=== PATIENT | male | born 1965 | race Caucasian/White ===

== ENCOUNTER 2017-07-06 17:20 | Emergency (ER) | payer SELFPAY ==
[2017-07-06 17:27] VITALS: BP 127/82; PULSE 108; RESP 18; TEMP 36.8; O2SAT 98; BMI 19.6
--- NOTE | 2017-07-06 17:32 | XR_ITS ---
XR hand LT min 3V HISTORY: Post traumatic pain ITS.REASON: fall ORDERING PHYSICIAN: Sofia Schaeffer MD PATIENT AGE: 51 years COMPARISON: None FINDINGS: Boxer's fracture involving the distal aspect of the fifth metacarpal with moderate radial and palmar angulation of the distal fracture fragment without significant displacement. There is cortical thickening of the proximal aspect of the fourth metacarpal with some bowing anteriorly of the distal aspect and mild shortening of the fourth metacarpal consistent with an old fracture. IMPRESSION: Nondisplaced boxer's fracture distal fourth metacarpal
--- NOTE | 2017-07-06 17:42 | HMH.EDFALL ---
ED Disposition Clinical Impression: Closed boxer's fracture, Fall Disposition: Home, Self-Care Condition on Discharge: Good Additional Instructions: Rest elevation ice and using [id number] pain medicine. follow up with Dr Lopez - Critical Care Critical Care Time: No Attestation: On , the high probability of a clinically significant, sudden or life threatening deterioration of the following system(s) required my full and direct attention, intervention and personal management. The time I documented below is in addition to time spent performing reported procedures but includes the following listed in this critical care notation. Medical Decision Making - Medical Records Medical records reviewed: Yes: I reviewed the patient's medical records. Vital Signs: 07/06/17 17:27 Temperature 98.2 F Temperature Source Oral Pulse Rate [Right Brachial] 108 H Respiratory Rate 18 Blood Pressure [Right Arm] 127/82 Blood Pressure Mean [Right Arm] 97 Blood Pressure Source [Right Arm] Automatic Cuff Blood Pressure Position [Right Arm] Sitting 02 Sat by Pulse Oximetry 98 Oxygen Delivery Method Room Air Orders (Tests/Meds): ORDERS Category Date Time Status Hand XR left minimum 3 views [XR hand LT min 3V] Stat Exams 07/06/17 17:32 Ordered - Radiology Data #1 Image(s): Hand Image Reviewed: Yes I reviewed the patient's radiology image Nondisplaced fracture in a previously healed boxer's fracture. - Lester Inquiry Pt receiving controlled substance: No Lester was queried for this patient: No Medical Decision Making Narrative: I discussed with the patient about splinting and following of Dr. Martin he seemed to agree. Fall HPI - General Chief Complaint: Fall Stated Complaint: ao [id number] @1600 L hand injury Mode of Arrival: Ambulatory Limitations: No Limitations Description of Symptoms (Recalled from ER Triage Doc. by RN): fell and hurt left hand - History of Present Illness HPI Narrative: 51 years old white male with a previously healed boxer's fracture of the left fifth metacarpal. He claims that he missed a step and landed on his left hand. complaint: fall Onset (ago): hour(s) (1 hour ago.) Fall from: standing Fall witnessed: no Place fall occurred: home Loss of consciousness: none Prolonged down time: no Symptoms prior to fall: none Quality: dull, aching Associated symptoms (after fall): denies - Related Data Allergies Allergy/AdvReac Type Severity Reaction Status Date / Time No Known Allergies Allergy Verified 07/06/17 17:31 [facility] History I have reviewed the patient's past medical history: Yes - *Social History Alcohol Intake: never - Psychiatric History Expresses thoughts of harming self/others: None Suicide Plan Description: No Plan ROS Obtained: Yes All systems reviewed & no additional complaints Physical Exam - General General appearance: alert, in no apparent distress - Head Head exam: atraumatic, normocephalic, normal inspection - Eye Eye exam: Present: normal appearance, PERRL, EOMI - ENT ENT exam: Present: normal exam, normal oropharynx, mucous membranes moist, TM's normal bilaterally, normal external ear exam - Neck Neck exam: Present: normal inspection, full ROM, trachea midline. Absent: meningismus, lymphadenopathy - Chest Chest inspection: Present: normal inspection, symmetric chest wall rise. Absent: tenderness - Respiratory Respiratory exam: Present: normal lung sounds bilaterally. Absent: respiratory distress - Cardiovascular Cardiovascular exam: Present: regular rate, normal rhythm. Absent: JVD - Abdominal Exam Abdominal exam: Present: soft, normal bowel sounds. Absent: distention, tenderness, guarding - Extremities Exam Extremities exam: Present: full ROM, tenderness, normal capillary refill, joint swelling (Swelling of the left fifth metacarpal phalangeal joint. ). Absent: calf tenderness - Back Exam Back exam
--- NOTE | 2017-07-06 17:46 | ED_ITS ---
ED Disposition Clinical Impression: Closed boxer's fracture, Fall Disposition: Home, Self-Care Condition on Discharge: Good Additional Instructions: Rest elevation ice and using [id number] pain medicine. follow up with Dr Lopez - Critical Care Critical Care Time: No Attestation: On , the high probability of a clinically significant, sudden or life threatening deterioration of the following system(s) required my full and direct attention, intervention and personal management. The time I documented below is in addition to time spent performing reported procedures but includes the following listed in this critical care notation. Medical Decision Making - Medical Records Medical records reviewed: Yes: I reviewed the patient's medical records. Vital Signs: 07/06/17 17:27 Temperature 98.2 F Temperature Source Oral Pulse Rate [Right Brachial] 108 H Respiratory Rate 18 Blood Pressure [Right Arm] 127/82 Blood Pressure Mean [Right Arm] 97 Blood Pressure Source [Right Arm] Automatic Cuff Blood Pressure Position [Right Arm] Sitting 02 Sat by Pulse Oximetry 98 Oxygen Delivery Method Room Air Orders (Tests/Meds): ORDERS Category Date Time Status Hand XR left minimum 3 views [XR hand LT min 3V] Stat Exams 07/06/17 17:32 Ordered - Radiology Data #1 Image(s): Hand Image Reviewed: Yes I reviewed the patient's radiology image Nondisplaced fracture in a previously healed boxer's fracture. - Lester Inquiry Pt receiving controlled substance: No Lester was queried for this patient: No Medical Decision Making Narrative: I discussed with the patient about splinting and following of Dr. Martin he seemed to agree. Fall HPI - General Chief Complaint: Fall Stated Complaint: ao [id number] @1600 L hand injury Mode of Arrival: Ambulatory Limitations: No Limitations Description of Symptoms (Recalled from ER Triage Doc. by RN): fell and hurt left hand - History of Present Illness HPI Narrative: 51 years old white male with a previously healed boxer's fracture of the left fifth metacarpal. He claims that he missed a step and landed on his left hand. complaint: fall Onset (ago): hour(s) (1 hour ago.) Fall from: standing Fall witnessed: no Place fall occurred: home Loss of consciousness: none Prolonged down time: no Symptoms prior to fall: none Quality: dull, aching Associated symptoms (after fall): denies - Related Data Allergies Allergy/AdvReac Type Severity Reaction Status Date / Time No Known Allergies Allergy Verified 07/06/17 17:31 [facility] History I have reviewed the patient's past medical history: Yes - *Social History Alcohol Intake: never - Psychiatric History Expresses thoughts of harming self/others: None Suicide Plan Description: No Plan ROS Obtained: Yes All systems reviewed & no additional complaints Physical Exam - General General appearance: alert, in no apparent distress - Head Head exam: atraumatic, normocephalic, normal inspection - Eye Eye exam: Present: normal appearance, PERRL, EOMI - ENT ENT exam: Present: normal exam, normal oropharynx, mucous membranes moist, TM's normal bilaterally, normal external ear exam - Neck Neck exam: Present: normal inspection, full ROM, trachea midline. Absent:
--- NOTE | 2017-07-06 18:35 | PC.NURSE ---
pt demanded md write prescription narcotics despite md offering prescription non-narcotic meds. pt states he has to work with his hand and we shouldn't look at his history. told pt that we hadn't even known about his history till he mentioned it. pt has etoh that is notable by scent on board. pd in with another patient and came to stand at room. pt stated well if you don't feel comfortable giving me a narcotic then i don't feel comfortable paying the bill for this visit and walked out. joint was stabilized prior to conversation.
== END 2017-07-06 17:45 | disposition home or self-care (01) ==
PROVIDERS: Emergency Provider Emergency Medicine
DX: S62.92XA Unspecified fracture of left hand, initial encounter for closed fracture (principal); W10.9XXA Fall (on) (from) unspecified stairs and steps, initial encounter; Y93.9 Activity, unspecified; Y92.9 Unspecified place or not applicable
CPT/HCPCS: 73130; 99282